=== PATIENT | female | born 1965 | race Caucasian/White ===

== ENCOUNTER 2016-11-01 13:03 | Emergency (ER) | payer OTHER ==
[~2016-11-01] VITALS: Ht 160 cm; Wt 56.2 kg
[~2016-11-01 13:03] MED LIST: ABILIFY MAINTE400 M1 IM; ABILIFY1 MG/1 ML PO; ABILIFY30 MG PO; BLEPH-105 ML LEFT EYE; IRON18 MG PO; NAPROSYN500 MG PO; PERIDEX1 ML MM; TRAMADOL HCL50 MG PO; VISTARIL25 MG PO
[2016-11-01] MEDS ORDERED: MOTRIN600 MG PO (14:24)
[2016-11-01] MEDS ORDERED: TRAMADOL HCL50 MG PO (14:24)
[2016-11-01 14:48] VITALS: BP 132/87
== END 2016-11-01 14:48 | disposition home or self-care (01) ==
LOC: EME 13:03 → EXP 13:03
DX: M79.672 Pain in left foot (principal)
CPT/HCPCS: 73630; 99281; 99283

== ENCOUNTER 2017-01-03 14:10 | Emergency (ER) | payer OTHER ==
[~2017-01-03] VITALS: Ht 160 cm; Wt 55.6 kg
[~2017-01-03 14:10] MED LIST changes: +MOTRIN600 MG PO
[2017-01-03 14:24] VITALS: BP 147/88
[2017-01-03 15:14] LABS: EOSINOPHIL (%) 0.5 % (0-5); IMMATURE GRANULOCYTE (%) 0.5 % (0.0-0.7); INSTRUMENT ABS NEUTROPHIL CT 2.4 K/uL; LYMPHOCYTE COUNT 0.8 K/uL (1.0-2.8); MCH 31.7 PG (29.0-34.0); MCHC 33.2 G/DL (30.0-36.0); MCV 95.7 FL (83-99); MEAN PLAT.VOLUME 10.8 uM^3 (9.5-12.4); MONOCYTE (%) 16.8 % (3-12); MONOCYTE COUNT 0.7 K/uL (0-0.8); NEUTROPHIL (%) 60.6 % (45-76); NEUTROPHIL COUNT 2.4 K/uL (1.8-6.4); PLATELET COUNT 185 K/uL (156-360); RBC DIS.WIDTH-CV 12.8 % (11.8-14.6); RBC DIS.WIDTH-SD 44.7 % (39-53); RED BLOOD COUNT 3.97 M/uL (3.80-5.20)
[2017-01-03 15:29] LABS: CHLORIDE 110 mEq/L (99-109); POTASSIUM 3.6 mEq/L (3.7-5.4); SODIUM 141 mEq/L (136-147)
[2017-01-03 15:30] LABS: MAGNESIUM 2.1 mg/dL (1.3-2.7)
[2017-01-03 15:32] LABS: GLUCOSE 83 mg/dL (70-99)
[2017-01-03 15:33] LABS: ANION GAP 11 MEQ/L (2-14)
[2017-01-03 15:34] LABS: TOTAL BILIRUBIN 0.1 mg/dL (0.0-1.0)
[2017-01-03 15:35] LABS: ALKALINE PHOSPHATASE 72 IU/L (3-129); GFR ESTIMATE (CALCULATED) 36 mL/min/
[2017-01-03 15:36] LABS: UREA NITROGEN (BUN) 13 mg/dL (9-23)
[2017-01-03 15:39] LABS: LIPASE 64 U/L (1.0-51.0); TROP-I INTERPRETATION NEGATIVE; TROPONIN-I < 0.01 ng/mL (0.0-0.30)
[2017-01-03 17:59] LABS: ADD MIUA? YES; BILIRUBIN NEGATIVE; BLOOD NEGATIVE; COLOR COLORLESS ((YELLOW)); GLUCOSE (STRIP) NEGATIVE; KETONES NEGATIVE; LEUKOCYTES SMALL; NITRITE NEGATIVE; PROTEIN (STRIP) NEGATIVE; SPECIFIC GRAVITY 1.003 (1.000-1.030); UROBILINOGEN 0.2 MG/DL (0.2-1.0)
[2017-01-03 18:06] LABS: BACTERIA 3+ /HPF; CALCIUM OXALATE CRYSTALS 1+ /HPF; EPITHELIAL CELLS RARE /HPF; MUCUS NONE SEEN /LPF; RED BLOOD CELLS 0-5 /HPF (0-5); WHITE BLOOD CELLS 0-5 /HPF (0-5)
[2017-01-03 18:14] LABS: AMPHETAMINE NEGATIVE (500 ng/mL); BARBITURATES NEGATIVE (200 ng/mL); BENZODIAZEPINES NEGATIVE (150 ng/mL); COCAINE NEGATIVE (150 ng/mL); INTERNAL CONTROLS VALID? YES; METHADONE NEGATIVE (200 ng/mL); METHAMPHETAMINE NEGATIVE (500 ng/mL); OPIATES (MORPHINE) NEGATIVE (100 ng/mL); OXYCODONE NEGATIVE (100 ng/mL); PHENCYCLIDINE NEGATIVE (25 ng/mL); PROPOXYPHENE NEGATIVE (300 ng/mL); THC CANNABINOIDS NEGATIVE (50 ng/mL); TRICYCLIC ANTIDEPRESSANTS NEGATIVE (300 ng/mL)
== END 2017-01-03 18:48 | disposition home or self-care (01) ==
LOC: EME 14:10
PROVIDERS: Physician Assistant
DX: R44.0 Auditory hallucinations (principal); F25.0 Schizoaffective disorder, bipolar type; R51 Headache; R10.9 Unspecified abdominal pain; R11.2 Nausea with vomiting, unspecified; Z72.0 Tobacco use
CPT/HCPCS: 70450; 71020; 76705; 80053; 81003; 83690; 83735; 84484; 85025; 90839; 93005; 99281; 99284; G0480

== ENCOUNTER 2017-12-07 20:48 | Emergency (ER) | payer OTHER ==
[~2017-12-07] VITALS: Ht 160 cm; Wt 58.3 kg
[2017-12-07 23:30] LABS: BASOPHIL (%) 0.5 % (0-1); EOSINOPHIL (%) 4.3 % (0-5); EOSINOPHIL COUNT 0.3 K/uL (0-0.3); HEMOGLOBIN 12.4 G/DL (11.9-15.5); IMMATURE GRANULOCYTE (%) 0.4 % (0.0-0.7); LYMPHOCYTE (%) 26.9 % (15-42); LYMPHOCYTE COUNT 2.1 K/uL (1.0-2.8); MCH 32.5 PG (29.0-34.0); MCHC 33.5 G/DL (30.0-36.0); MCV 97.1 FL (83-99); MONOCYTE (%) 9.7 % (3-12); MONOCYTE COUNT 0.8 K/uL (0-0.8); NEUTROPHIL (%) 58.2 % (45-76); NEUTROPHIL COUNT 4.6 K/uL (1.8-6.4); PLATELET COUNT 235 K/uL (156-360); RBC DIS.WIDTH-CV 12.4 % (11.8-14.6); RBC DIS.WIDTH-SD 43.9 % (39-53); RED BLOOD COUNT 3.81 M/uL (3.80-5.20)
[2017-12-07 23:38] LABS: CHLORIDE 109 mEq/L (99-109)
[2017-12-07 23:39] LABS: POTASSIUM 4.3 mEq/L (3.7-5.4); SODIUM 141 mEq/L (136-147)
[2017-12-07 23:40] LABS: GLUCOSE 86 mg/dL (70-99)
[2017-12-07 23:43] LABS: SERUM ETHYL ALCOHOL < 10 mg/dL
[2017-12-07 23:44] LABS: CREATININE 1.4 mg/dL (0.6-1.3); GFR ESTIMATE (CALCULATED) 42 mL/min/
[2017-12-07 23:45] LABS: UREA NITROGEN (BUN) 18 mg/dL (9-23)
[2017-12-08 00:34] LABS: AMPHETAMINE NEGATIVE (500 ng/mL); BARBITURATES NEGATIVE (200 ng/mL); BENZODIAZEPINES NEGATIVE (150 ng/mL); BUPRENORPHINE NEGATIVE (10 ng/mL); COCAINE NEGATIVE (150 ng/mL); METHADONE NEGATIVE (200 ng/mL); METHAMPHETAMINE NEGATIVE (500 ng/mL); OPIATES (MORPHINE) NEGATIVE (100 ng/mL); OXYCODONE NEGATIVE (100 ng/mL); PHENCYCLIDINE NEGATIVE (25 ng/mL); PROPOXYPHENE NEGATIVE (300 ng/mL); THC CANNABINOIDS NEGATIVE (50 ng/mL); TRICYCLIC ANTIDEPRESSANTS NEGATIVE (300 ng/mL)
[2017-12-08 00:48] VITALS: BP 138/90
== END 2017-12-08 00:49 | disposition home or self-care (01) ==
LOC: EME 20:48
PROVIDERS: Emergency Medicine
DX: F25.0 Schizoaffective disorder, bipolar type (principal); F17.200 Nicotine dependence, unspecified, uncomplicated; Z86.69 Personal history of other diseases of the nervous system and sense organs; Z88.5 Allergy status to narcotic agent
CPT/HCPCS: 80048; 85025; 90839; 99281; 99284; G0480